=== PATIENT | female | born 1990 | race Caucasian/White ===

== ENCOUNTER → 2018-08-02 | Outpatient (CLI) | payer OTHER ==
--- NOTE | 2018-08-02 18:30 | CONS ---
Assessment/Plan Assessment/Plan Hospital Course (Demo Recall) This is a 28-year-old [id number] female with recurrent left shoulder dislocation. Her first 2 dislocations were traumatic and 17 and 15 years ago. His most recent one was an atraumatic dislocation. X-rays today confirmed that the glenoid humeral joint is indeed reduced and there is no obvious fracture. At this time I instructed her that she needs to start on pendulums for the shoulder and start range of motion for the elbow immediately. I also requested an authorization for physical therapy for shoulder dislocation instability protocol. I long discussion with the patient that she is high risk for further dislocations. If she continues to be unstable she will need to see a shoulder/elbow surgeon. Secondary to the patient's pain 3 days of Percocet 10/325 mg were provided Follow-up in 6 weeks to monitor progress Consultation Date/Type/Reason Admit Date/Time Date of Consultation: Aug 02, 2018 Reason for Consultation Left shoulder dislocation Date/Time of Note DATE: 08/02/18 TIME: 18:12 Hx of Present Illness 28-year-old [id number] female presents to clinic for further evaluation and treatment of left shoulder after a dislocation. She woke up on July 19 with severe left shoulder pain and was found to have a dislocated shoulder. This was reduced successfully in the emergency department at [facility] under conscious sedation. The patient had 2 previous traumatic left shoulder disloc ations. The first dislocation was approximately 17 years ago during gymnastics of the second dislocation again was during gymnastics about 15 years ago. Since then she has been doing okay. She denies numbness and tingling. She is in 3/10 pain without moving. With movement of the shoulder she is 10/10 pain the pain is described as dull and throbbing. She has been in a sling and has not on any range of motion of her shoulder or elbow since July 19. She has been taking Percocet and Vaughn for pain control. Patient denies fever, chills, shortness of breath, chest pain, nausea/vomiting, constipation, diarrhea, numbness, and tingling. Past Medical History IBS Fibromyalgia Eczema Depression Past Surgical History Colonoscopy Family History Significant Family History: no pertinent family hx Social History Alcohol Use: heavy (Up to 5 drinks a week) Smoking Status: Current every day smoker (Vape) Drug Use: other (Distant use of ecstasy 10 years ago) Exam/Review of Systems Exam Vitals Weight: 122 pounds Height: 5 foot 2 inches Temperature: 90.2 Heart Rate: 77 Blood Pressure: 111/70 Respiratory Rate: 10 Exam General: Awake, alert, in no acute distress, pleasant and cooperative Heart: regular rhythm Lungs: breathing comfortably, no tachypnea or dyspnea MUSCULOSKELETAL: Left upper extremity: No gross deformity around the shoulder. Normal contour. Skin intact. No ecchymosis. There is diffuse tenderness to palpation. Range of motion of the shoulder is limited secondary to pain and stiffness however it is smooth range of motion with no mechanical block. Elbow is stiff and can be extended to 30 degrees and flexed to 120. Sensation intact to light touch in a median, ulnar, radial, and axillary distribution. Motor is intact in a median, ulnar, radial, anterior interosseous, and posterior interosseous nerve distribution. Radial and ulnar artery are +2. Wrist extension and flexion are intact. Compartments are soft. Imaging Imaging 4 views of the left shoulder including AP, Grashey, scapular Y, axillary were obtained and personally reviewed. Glenohumeral joint is reduced. There is no fracture appreciated of the glenoid or humeral head. No degenerative changes. No fracture EKATERINA COTE MD Aug 02, 2018 18:30
--- NOTE | 2018-08-05 10:57 | RADRPT ---
PROCEDURE: XR Left Shoulder CLINICAL INDICATION: Pain TECHNIQUE: 5 views were submitted. COMPARISON: None FINDINGS: Osseous structures: appear well mineralized and intact with no fracture or destructive process ident ified. Joint spaces: The glenohumeral joint appears unremarkable. The left AC joint appears unremarkable. Soft tissues: appear unremarkable. IMPRESSION: Unremarkable left shoulder. Physician Kinjal Date Time Electronically viewed and signed by Physician Kinjal on 08/05/2018 10:57 RH/
== END | disposition home or self-care (01) ==
LOC: HKI 14:49
PROVIDERS: ATTEND Orthopaedic Surgery Adult Reconstructive Orthopaedic Surgery
DX: M25.512 Pain in left shoulder (principal)
CPT/HCPCS: 73030; Z7500; G0463

== ENCOUNTER → 2018-08-28 | Outpatient (CLI) | payer OTHER ==
--- NOTE | 2018-08-28 16:03 | CONS ---
Consult Date/Type/Reason Admit Date/Time Initial Consult Date Date/Time of Note DATE: 08/28/18 TIME: 15:59 Subjective 28-year-old female 6 weeks status post atraumatic left shoulder dislocation here for follow-up. She started physical therapy approximately 3 weeks ago. Feels she has made significant progress. Pain is much better. Range of motion is still very limited secondary to pain and stiffness. Denies numbness and tingling. Denies any subluxation or dislocation events. Objective Exam General: Awake, alert, in no acute distress, pleasant and cooperative Heart: regular rhythm Lungs: breathing comfortably, no tachypnea or dyspnea MUSCULOSKELETAL: Pain at the ends of range of motion. Active range of motion: FE : 30 Abd: 30 ER: 20 Passive ROM: FE: 60 Abd: 70 ER: 30 IR: 60 Sensation intact to light touch in a median, ulnar, radial, and axillary distribution. Motor is intact in a median, ulnar, radial, anterior interosseous, and posterior interosseous nerve distribution. Radial and ulnar artery are +2. Wrist extension and flexion are intact. Compartments are soft. Assessment/Plan Hospital Course (Demo Recall) 6 weeks status post atraumatic left shoulder dislocation. Her pain is much improved since she was seen last. Her passive is greater than active range of motion. Range of motion continues to be limited by pain and stiffness. At this time I like her to continue aggressive physical therapy. There are no restrictions for her. Like to have physical therapy 3 times a week for another 9 weeks for today's visit. Also recommending the NSAIDs to help with inflammation and pain. However secondary to some of the patient's medications specifically SSRIs there is potentially interaction with NSAIDs. I asked the patient to discuss with her psychiatrist about this. Follow-up in 4-6 weeks EKATERINA COTE MD Aug 28, 2018 16:03
== END | disposition home or self-care (01) ==
LOC: HKI 14:04
PROVIDERS: ATTEND Orthopaedic Surgery Adult Reconstructive Orthopaedic Surgery
DX: S43.005D Unspecified dislocation of left shoulder joint, subsequent encounter (principal); X58.XXXD Exposure to other specified factors, subsequent encounter
CPT/HCPCS: G0463

== ENCOUNTER → 2018-09-25 | Outpatient (CLI) | payer OTHER ==
--- NOTE | 2018-09-25 13:03 | CONS ---
Consult Date/Type/Reason Admit Date/Time Initial Consult Date Date/Time of Note DATE: 09/25/18 TIME: 12:58 Subjective 36-year-old female just over 2 months status post atraumatic left shoulder dislocation. She has been in physical therapy. She states she has made significant improvement in terms of range of motion and pain control. However she continues to have limited range of motion use of her left shoulder. In addition she states that multiple times a day she feels "movement" of her shoulder joint and feels like it can dislocate again. Denies numbness and tingling. Denies any dislocation event. Objective Vitals Weight: 122 pound Height: 5 foot 2 inches Heart Rate: 37 Blood Pressure: 121/70 Exam General: Awake, alert, in no acute distress, pleasant and cooperative Heart: regular rhythm Lungs: breathing comfortably, no tachypnea or dyspnea MUSCULOSKELETAL: Pain at the ends of range of motion. Active range of motion: FE : 90 Abd: 70 ER: 30 Passive ROM: FE: 110 Abd: 90 ER: 30 IR: 60 Sensation intact to light touch in a median, ulnar, radial, and axillary distribution. Motor is intact in a median, ulnar, radial, anterior interosseous, and posterior interosseous nerve distribution. Radial and ulnar artery are +2. Wrist extension and flexion are intact. Compartments are soft. Assessment/Plan Hospital Course (Demo Recall) 2 months status post atraumatic left shoulder dislocation. Her pain and range of motion is much improved since she was seen last. However she does note feelings of instability and sloppiness of her shoulder. This happens multiple times a day with no provoking activity or motion. Examination is negative for gross instability. At this time I would like to further evaluate her shoulder with an MR arthrogram. Would like to evaluate for labral tears and other periarticular structures. It is unlikely anything was acutely torn disrupted as this was an atraumatic dislocation. The patient will return to clinic to review results of the MRI. She will likely be referred to a shoulder surgeon at that time. EKATERINA COTE MD September 25, 2018 13:03
== END | disposition home or self-care (01) ==
LOC: HKI 11:04
PROVIDERS: ATTEND Orthopaedic Surgery Adult Reconstructive Orthopaedic Surgery
DX: S43.005D Unspecified dislocation of left shoulder joint, subsequent encounter (principal); X58.XXXD Exposure to other specified factors, subsequent encounter
CPT/HCPCS: G0463

== ENCOUNTER → 2018-10-24 | Outpatient (CLI) | payer OTHER ==
--- NOTE | 2018-10-24 18:44 | CONS ---
Consult Date/Type/Reason Admit Date/Time Initial Consult Date Date/Time of Note DATE: 10/24/18 TIME: 18:38 Subjective 28-year-old female following up today for review of MRI of right shoulder. She is about 3 months status post spontaneous anterior dislocation of her left shoulder. She has had 2 previous shoulder dislocations that were traumatic. She has been in physical therapy. Overall her pain has significantly decreased. At last visit her pain was at least 4/10. Today her pain is 12/10. However she is feeling that she is losing some range of motion compared to last visit. She does however feel that her shoulder is more stable. Denies numbness and tingling. Objective Vitals Weight: 120 pounds Height: 5 foot 2 inches Temperature: 98.2 Heart Rate: 80 Blood Pressure: 124/81 Respiratory Rate: 12 Exam General: Awake, alert, in no acute distress, pleasant and cooperative Heart: regular rhythm Lungs: breathing comfortably, no tachypnea or dyspnea MUSCULOSKELETAL: Pain at the ends of range of motion. Active range of motion: FE : 80 Abd: 45 ER: 15 Passive ROM: FE: 90 Abd: 60 ER: 30 IR: 60 Results/Medications Imaging Imaging of the MRI of the right shoulder was personally reviewed. There is significant thickening and edema of the capsule. This is consistent with adhesive capsulitis. There is an old relatively large Bankart lesion. There is a Hill-Sachs deformity. There is no evidence of glenoid bone loss. There is very mild supraspinatus calcific tendinitis. There is no evidence of tear of the rotator cuff. Assessment/Plan Hospital Course (Demo Recall) 28-year-old female with history of left shoulder instability with atraumatic shoulder dislocation 3 months ago. Her clinical presentation as well as her MRI imaging are consistent with adhesive capsulitis. Her pain has decreased since last visit along with her range of motion. I believe she is transitioning from the first stage to the second stage of adhesive capsulitis, the freezing stage. At this time I educated the patient on adhesive capsulitis and its natural history. She can try to continue physical therapy however if this does exacerbate her pain and symptoms she should stop and just use her shoulder and arm as much as he can do her activities of daily living. I expect her shoulder to regain range of motion slowly starting several months from now. Patient deferred referral to shoulder specialist. Like to see the patient back in 3 months for annual exam. EKATERINA COTE MD October 24, 2018 18:44
== END | disposition home or self-care (01) ==
LOC: HKI 13:06
PROVIDERS: ATTEND Orthopaedic Surgery Adult Reconstructive Orthopaedic Surgery
DX: Q65.01 Congenital dislocation of right hip, unilateral (principal); M75.02 Adhesive capsulitis of left shoulder
CPT/HCPCS: G0463